=== PATIENT | male | born 1955 | race Caucasian/White ===

== ENCOUNTER 2017-03-24 01:59 | Inpatient (IN) | payer OTHER ==
[~2017-03-24] VITALS: Ht 170.2 cm; Wt 63.5 kg
[~2017-03-24 01:59] MED LIST: ASPIRIN EC81 M1 PO; LISINOPRIL10 M1 PO; METOPROLOL SUCC50 M2 PO; SIMVASTATIN40 M1 PO
[2017-03-24] MEDS ORDERED: COLACE100 M1 PO (10:29)
[2017-03-24] MEDS ORDERED: DILAUDID4 M1 PO (10:29)
[2017-03-24] MEDS ORDERED: ASPIRIN EC325 M2 PO (10:29)
[2017-03-24] MEDS ORDERED: MIRALAX17 G1 PO (10:29)
[2017-03-24] MEDS ORDERED: MORPHINE SULFAT15 M4 PO (10:29)
--- NOTE | 2017-03-24 10:49 | Patient Discharge Instructions ---
Discharge Instructions General Discharge Information You were seen/treated for: primary unilateral osteoarthritis You had these procedures: total hip replacement (03/24/17) Watch for these problems: fever>101.5, excessive drainage or inability to bear weight on the operative extremity. No bath, but you may shower: Yes Other wound care: dry dressing. may shower. no baths. no ointments of any kind. visiting nurses will remove sutures if applicable. Special Instructions: ice as needed. Diet Continue normal diet: Yes Recommended Diet: Regular Activity Full Activity/No Limits: Yes Activity Self Limited: Yes Activity Limited to: Weight bear as tolerated Other activity limits: no restrictions. no hip precautions. rolling walker assistance Acute Coronary Syndrome Inclusion Criteria At DC or during hospital stay patient has or had the following: ACS DIAGNOSIS No Discharge Core Measures Meds if any: Prescribed or Continued at Discharge Meds if any: NOT Prescribed or Continued at Discharge Congestive Heart Failure Inclusion Criteria At DC or during hospital stay patient has or had the following: CHF DIAGNOSIS No Discharge Core Measures Meds if any: Prescribed or Continued at Discharge Meds if any: NOT Prescribed or Continued at Discharge Cerebrovascular accident Inclusion Criteria At DC or during hospital stay patient has or had the following: CVA/TIA Diagnosis No Discharge Core Measures Meds if any: Prescribed or Continued at Discharge Meds if any: NOT Prescribed or Continued at Discharge Venous thromboembolism Inclusion Criteria VTE Diagnosis No VTE Type NONE VTE Confirmed by (Test) NONE Discharge Core Measures - Per Current guidelines, there needs to be overlap - treatment for the first 5 days of Warfarin therapy. - If discharged on Warfarin prior to 5 days of - overlap therapy, the patient will need to be - assessed for post discharge needs including - *Post discharge parental anticoagulation - *Warfarin and/or parental anticoagulation education - *Follow up date to check INR post discharge At least 5 days overlap therapy as Inpatient No Meds if any: Prescribed or Continued at Discharge Note: Overlap Therapy is Warfarin and Anticoagulant Meds if any: NOT Prescribed or Continued at Discharge
[2017-03-24] MEDS ORDERED: MORPHINE SULFAT15 M3 PO (10:54)
--- NOTE | 2017-03-24 11:01 | Admission Core Measures ---
Admission Meds I reviewed the following Meds: Current Medications Sig/Chauncey Start time Last Medication Dose Stop Time Status Admin Acetaminophen 975 MG ONCE 03/24 0000 NR (Tylenol) 03/24 2359 Cefazolin Sodium 2,000 MG ONCE 03/24 0000 NR (Kefzol-Ancef Inj) 03/24 2359 Oxycodone HCl 10 MG ONCE 03/24 0000 NR (Roxicodone) 03/24 2359 Acute Coronary Syndrome Inclusion Criteria ACS Diagnosis No Inpatient Core Measures LDL Reminder: If No, please order W/I first 24hr of stay Congestive Heart Failure Inclusion Criteria CHF Diagnosis No Cerebrovascular accident Inclusion Criteria CVA/TIA Diagnosis No Inpatient Core Measures Bedside Swallow Eval Reminder: If BSE failed, place ST order Antithrombotic Reminder: Order Antithrombotic Medication by end of day 2 Antithrombotic Reminder: Document Reason Antithrombotic Not ordered by end of day 2 AFIB/Flutter Reminder: If Present, add to problem list AFIB/Flutter Reminder: Order Anticoag Medication for pts with AFIB/Flutter Atherosclerosis Reminder: If Present, add to problem list LDL Reminder: If No, please order W/I first 24hr of stay PT Order Reminder: If No, please order Venous thromboembolism Inpatient Core Measures VTE Risk Factors: Age > 40, Surgery No [facility] VTE prophylaxis d/t No contraindications No VTE Pharm Prophylaxis d/t No contraindications Inclusion Criteria - Per Current guidelines, there needs to be overlap - treatment for the first 5 days of Warfarin therapy. - Parenteral Anticoagulation (IV or SC) needs to be - given along with Warfarin therapy. VTE Diagnosis No VTE Type NONE VTE Confirmed by (Test) NONE Problem List As ranked by this Provider includes Assessment & Plan 1. Unilateral osteoarthritis of hip 2. Status post total hip replacement, right HOME MEDS Home Med List Aspirin (Ecotrin*) 81 MG TABLET.DR 1 TAB PO DAILY CAD (Reported) Aspirin (Ecotrin*) 325 MG TABLET.DR 1 TAB PO BID ANTICOAGULATION Docusate Sodium (Colace) 100 MG CAPSULE 1 CAP PO BID PRN CONSTIPATION Hydromorphone HCl (Dilaudid) 4 MG TABLET 1 TAB PO Q4-6 PRN PRN PAIN CONTROL Lisinopril 10 MG TABLET 1 TAB PO DAILY HTN (Reported) Metoprolol Succinate 50 MG TAB.ER.24H 1 TAB PO DAILY CAD (Reported) Morphine Sulfate (Morphine Sulfate ER) 15 MG TABLET.ER 1 TAB PO BIDP PRN pain control Polyethylene Glycol 3350 (Miralax) 17 GRAM POWD.PACK 1 PAC PO DAILY CONSTIPATION Simvastatin (Simvastatin*) 40 MG TABLET 1 TAB PO QPM CHOLESTEROL (Reported)
--- NOTE | 2017-03-24 11:03 | Surg Short-stay <48hrs Dis Sum ---
Visit Information Visit Dates Admission Date: 03/24/17 Discharge Date: 03/24/17 Surgical Short Stay DC Summary Admission Diagnosis: unilateral primary osteoarthritis, right hip Final Diagnosis: same as above, s/p total hip replacement, right (03/24/17) Procedure(s): right total hip replacement (03/24/17) Summary/Significant Findings: Patient was admitted to the hospital for an elective total joint replacement. The procedure was tolerated well and the patient was transferred to a general surgical floor. Diet was advanced and tolerated and the patient voided spontaneously. The patient was evaluated and treated by physical therapy, and cleared to go home with services. Condition at Discharge: stable Discharge Disposition: home health services Discharge instructions provided to patient/family: Yes Post discharge follow-up plan: follow up in 6 weeks with pre-printed instructions provided
--- NOTE | 2017-03-24 11:22 | RADIOLOGY REPORT ---
EXAMINATION: XR HIP, RIGHT CLINICAL INFORMATION: Right hip replacement. COMPARISON: None TECHNIQUE: Two views of the right hip. FINDINGS: The noncemented components of the right total hip arthroplasty are in their expected positions. There is approximately 35 degrees of anteversion and approximately 45 degrees of lateral version of the acetabular cup, which is stabilized by a superior screw. The femoral head prosthesis is well centered within the acetabular cup and the tip of the femoral stem is appropriately positioned in the medullary cavity of the proximal femoral diaphysis. No acute periprosthetic fracture. Mild postoperative soft tissue swelling and soft tissue gas around the hip. IMPRESSION: Satisfactory position and alignment of components of the right total hip arthroplasty
--- NOTE | 2017-03-24 14:13 | PN- Orthopedic ---
Subjective Subjective: POST-OP NOTE: No complaints. Denies pain. Tolerating clears. No nausea. Getting up for first time in pacu with PT. No dizziness. No shortness of breath. No chest pains. Objective Vital Signs and I&Os pacu flowsheet reviewed, vss Physical Exam: General - alert & oriented x 3. comfortable. no acute distress. Lungs - clear bilaterally. no w/r/r. Cardiac - s1s2. reg. Abdomen - soft. nontender. Extremities - warm bilaterally. no c/c/e. calves soft and nontender b/l. nvi. right hip dressing c/d/i. no hematoma. Current Medications: Current Medications Sig/Chauncey Start time Last Medication Dose Route Stop Time Status Admin Acetaminophen 0 .STK-MED ONE 03/24 0821 DC PO Acetaminophen 975 MG ONCE 03/24 0000 NR PO 03/24 235 Cefazolin Sodium 2,000 MG ONCE 03/24 0000 NR IV 03/24 235 Oxycodone HCl 0 .STK-MED ONE 03/24 0822 DC PO Oxycodone HCl 10 MG ONCE 03/24 0000 NR PO 03/24 2359 Assessment/Plan Assessment/Plan This 61 year old white hx htn, hld, is POD#0 s/p right total hip replacement, anterior approach tolerating clears. advance as tolerated. pain controlled asa bid - dvt ppx ancef x 2 inga-operatively due to void prior to discharge home bowel regime ordered home meds ordered, including beta keri likely d/c home this afternoon if able to void will d/w Core Measures/Miscellaneous Venous Thromboembolism VTE Risk Factors: Age > 40, Surgery VTE Contraindications: No Contraindications VTE Diagnosis: No VTE Type: NONE VTE Confirmed by (Test): NONE Beta Keri Is Beta Keri a Home Med? Yes If Yes, Was This Ordered Today? Yes Antibiotics Is Patient on Antibiotics? Yes If Yes: prophylaxis
[2017-03-24 14:46] VITALS: BP 150/80
--- NOTE | 2017-03-24 15:02 | Operative Report ---
Operative/Inv Procedure Report Surgery Date: 03/24/17 Name of Procedure: Right total hip replacement Pre-Operative Diagnosis: Primary right hip DJD Post-Operative Diagnosis: Same Estimated Blood Loss: 250 Surgeon/Cured Meats Supervisor: DANIAL ESCOBAR,CARLOS Rebolledo Anesthesia: block Operative/Procedure Note Note: Description of Procedure: The patient was taken to the operating room and positively identified. After induction of spinal anesthesia and administration of appropriate pre-operative antibiotics, the patient was positioned supine on the operating room table and all bony prominences were well padded. After performing a surgical timeout, the right lower extremity was prepped and draped in the usual sterile fashion. A direct anterior approach was made to the right hip. The incision was carried sharply through superficial soft tissues to the level of the fascia. Meticulous hemostasis was maintained with Bovie electocautery. The fascia over the tensor fascia abner muscle was opened sharply and the interval between the TFL and the sartorius was entered bluntly taking care to stay lateral to the lateral femoral cutaneous nerve. Retractors were placed around the femoral neck and the pericapsular fat was identified. The ascending branches of the lateral femoral circumflex vessels were identified and carefully coagulated. The pericapsular fat and anterior capsule were then resected. A napkin ring osteotomy was performed and the femoral head was removed without difficulty. Attention was then turned to the acetabulum. After appropriate placement of retractors, the acetabulum was exposed. Soft tissue was cleaned from the acetabular margin and notch. Overhanging osteophytes were removed and the teardrop was exposed. The acetabulum was then sequentially reamed to accept a 56 mm Subha Tritanium hemispherical cluster hole shell. This was impacted into place in the appropriate position and a single screw was used for supplemental fixation. It was then Fitted with a 36 mm Trident X3 zero degree polyethylene insert. Attention was then turned to the femur. After performing the appropriate ligament releases, the proximal femur was exposed. It was then sequentially broached to accept a size 3 Subha Anato stem. This was trialed for leg length and stability. The trial component was removed and the final component was impacted into place. The trunnion was carefully cleaned and fit with a 36 mm, + 0 Biolox delta ceramic femoral head. The hip was reduced and put through a full range of motion and found to be stable. The articular space was then irrigated with sterile saline. The periarticular soft tissues were infilitrated with Marcaine. The fascial layer was closed with interrupted #1 vicryl suture and the skin was re-approximated with interrupted 2 -0 vicryl. The skin was closed with a running 3-0 V-Lock suture. Steri-strips and a sterile dressing were applied. The patient was awakened and taken to the recovery room in satisfactory condition.
--- NOTE | 2017-03-24 15:09 | NUR ---
PATIENT ARRIVED TO [facility] FROM PACU VIA STRETCHER. HE IS ALERT AND ORIENTATED X3. VSS. NO SOB. DENIES CP. ABD SOFT. BS POSITIVE IN ALL 4 QUADRANT. RIGHT HIP DSG CLEAN DRY AND INTACT. POSITIVE CMS. DENIES PAIN. IV FLUIDS INFUSING. ORIENTATED TO ROOM AND CALL LIGHT. AT BEDSIDE. WILL FOLLOW PLAN OF CARE.
== END 2017-03-24 16:30 | disposition home health service (06) | DRG 470 ==
LOC: SDA 01:59 → EDBD 07:00 → ENRESERV 13:03 → ENTRNSPT 14:20 → EDTRNSPTSTS 14:32 → 2NA 14:37 → ENPENDDIS 14:53 → CMPTRNSPT 14:59 → 2NA 16:30
PROVIDERS: ADMIT Orthopaedic Surgery
PROC: 0SR904A Replacement of Right Hip Joint with Ceramic on Polyethylene Synthetic Substitute, Uncemented, Open Approach (ICD-10-PCS; principal; 2017-03-24)
DX: M16.11 Unilateral primary osteoarthritis, right hip (principal); I10 Essential (primary) hypertension; I25.2 Old myocardial infarction; I25.10 Atherosclerotic heart disease of native coronary artery without angina pectoris; Z95.5 Presence of coronary angioplasty implant and graft; E78.5 Hyperlipidemia, unspecified
CPT/HCPCS: 2NAP; 73502-RT; 97116-GO; 97161-GP; 97530-GO; J0131; J0690; J0735; J1100; J2405; J7042